=== PATIENT | female | born 1980 | race Caucasian/White ===

== ENCOUNTER → 2018-04-29 | Outpatient (CLI) | payer OTHER ==
--- NOTE | 2018-04-29 13:26 | US ---
EXAMINATION TYPE: US thyroid st tissue head/neck DATE OF EXAM: 04/29/2018 COMPARISON: NONE CLINICAL HISTORY: R22.1 SWELLING MASS LUMP; upper neck fullness per patient. GLAND SIZE: Right Lobe: 5.2 x 1.3 x 1.4 cm Overall Parenchyma: homogenous Left Lobe: 4.5 x 1.1 x 1.3 cm Overall Parenchyma: homogeneous Isthmus Thickness: 0.3 cm NODULES RIGHT: # of nodules measured on right: 1 1. 0.9 X 0.8 x 0.7 cm isoechoic mixed nodule at the lower pole with poorly defined (very isoechoic to thyroid tissue)margins. This nodule is wider than tall and shows no intranodular vascularity. LEFT: # of nodules measured on left: 0 ISTHMUS: # of nodules measured in the isthmus: 0 Bilateral neck scanned: lymph node seen superior to right thyroid = 1.8 x 1.3 x 0.6cm. IMPRESSION: Solitary subcentimeter right isoechoic thyroid nodule that does not meet size criteria for percutaneo us biopsy. Surveillance is recommended.
--- NOTE | 2018-04-29 13:43 | US ---
EXAMINATION TYPE: US pelvis complete transvag DATE OF EXAM: 04/29/2018 COMPARISON: NONE CLINICAL HISTORY: N92.6 IRREGULAR MENSES; mother in menopause age 40 per patient; pelvic pain after e xercise TECHNIQUE: Transvaginal (TV) and Transabdominal (TA) . Transabdominal sonographic images of the pel vis were acquired. Transvaginal sonographic images were medically necessary to better assess the fol lowing anatomy: endometrium Date of LMP: 04/16/2018 EXAM MEASUREMENTS: Uterus: 8.4 x 5.3 x 4.1cm Endometrial Stripe: 1.8cm on TV US Right Ovary: 2.8 x 2.4 x 2.2cm Left Ovary: 4.0 x 2.1 x 2.9cm 1. Uterus: Retroverted on TV US; multiple small hyperechoic foci in MARYJO at C section scar 2. Endometrium: abnormally thickened for day 14 LMP as is greater than 1.4cm normal range 3. Right Ovary: multiple small follicles 4. Left Ovary: multiple follicles are seen with largest as simple cyst = 2.3 x 1.4 x 2.3cm; color fl ow is seen in bilateral ovary 5. Bilateral Adnexa: wnl 6. Posterior cul-de-sac: small amount of free fluid seen IMPRESSION: 1. Abnormally thickened endometrium. This could represent endometrial hyperplasia, endometrial polyp or endometrial mass. Further evaluation with sonohysterogram or direct visualization could be perform ed. 2. Small amount of free fluid within the pelvis, likely physiologic in nature and could represent seq uela of a recently ruptured cyst.
== END | disposition home or self-care (01) ==
LOC: RADUSWWP 08:54
PROVIDERS: ATTEND Family Medicine
DX: E04.1 Nontoxic single thyroid nodule (principal); R93.89 Abnormal findings on diagnostic imaging of other specified body structures; N92.6 Irregular menstruation, unspecified
CPT/HCPCS: 76536; 76830; 76856

== ENCOUNTER → 2018-05-07 | Outpatient (CLI) | payer OTHER ==
--- NOTE | 2018-05-07 13:13 | MM ---
Reason for exam: clinical finding. Last mammogram was performed 14 years and 7 months ago. History: Family history of breast cancer in maternal aunt at age 40. Indicated problem(s): pain in both breasts. Physical Findings: Nurse Summary: 0.5 x 0.5cm/ 1 x 2cm nodule in the right breast upper outer quadrant and a 0.5 x 0.5cm nodule in the left breast upper outer quadrant (nurse ts). [facility] Mammo w CAD ADRIENNE Bilateral CC and MLO view(s) were taken. The breast tissue is heterogeneously dense. This may lower the sensitivity of mammography. There is no discrete abnormality including area of concern. No significant new findings when compared with previous films. These results were verbally communicated with the patient and result sheet given to the patient on 05/07/18. ASSESSMENT: Incomplete: need additional imaging evaluation, BI-RAD 0 RECOMMENDATION: Ultrasound of both breasts.
--- NOTE | 2018-05-07 13:14 | USB ---
Reason for exam: additional evaluation requested from abnormal screening. History: Family history of breast cancer in maternal aunt at age 40. US Breast Limited BILAT Right limited breast ultrasound including focal area of concern, retroareolar and axilla demonstrates a 0.5 x 0.6 x 0.3cm cystic lesion at the posterior nipple. Left limited breast ultrasound including focal area of concern, retroareolar and axilla demonstrates no cystic or solid lesion seen. These results were verbally communicated with the patient and result sheet given to the patient on 05/07/18. ASSESSMENT: Benign, BI-RAD 2 RECOMMENDATION: Routine screening mammogram of both breasts at age 41. Manage patient on a clinical basis.
== END | disposition home or self-care (01) ==
LOC: RADMAMWWP 07:54
PROVIDERS: ATTEND Family Medicine
DX: N64.4 Mastodynia (principal)
CPT/HCPCS: 77066

== ENCOUNTER → 2018-10-22 | Outpatient (CLI) | payer OTHER ==
--- NOTE | 2018-10-22 15:02 | US ---
EXAMINATION TYPE: US thyroid st tissue head/neck DATE OF EXAM: 10/22/2018 COMPARISON: 04/29/2018 CLINICAL HISTORY: E04.1 Thyroid Nodule. follow up right nodule, no thyroid meds GLAND SIZE: Right Lobe: 4.1 x 1.3 x 1.3 cm Overall Parenchyma: homogenous Left Lobe: 3.9 x 1.1 x 1.4 cm Overall Parenchyma: homogeneous Isthmus Thickness: 0.2 cm NODULES RIGHT: # of nodules measured on right: 1 1. 0.8 X 0.6 x 0.7 cm isoechoic nodule at the lower pole with poorly defined margins. This nodule is taller than wide and shows no intranodular vascularity. Prior size: 0.9 x 0.8 x 0.7 cm LEFT: # of nodules measured on left: 0 ISTHMUS: # of nodules measured in the isthmus: 0 Bilateral neck scanned, no evidence of lymphadenopathy. IMPRESSION: Solitary subcentimeter right thyroid nodule are similar to the prior exam of 04/29/2018. Continued ahn rveillance could be performed.
== END | disposition home or self-care (01) ==
LOC: RADUSWWP 09:37
PROVIDERS: ATTEND Family Medicine
DX: E04.1 Nontoxic single thyroid nodule (principal)
CPT/HCPCS: 76536

== ENCOUNTER → 2019-01-27 | Outpatient (CLI) | payer OTHER ==
--- NOTE | 2019-01-27 13:19 | CT ---
EXAMINATION TYPE: CT soft tissue neck w con DATE OF EXAM: 01/27/2019 12:59 PM COMPARISON: Thyroid ultrasound 10/22/2018 HISTORY: Enlarged lymph node CT DLP: 309.9 mGycm Automated exposure control for dose reduction was used. CONTRAST: CT scan of the neck is performed following with IV Contrast, patient injected with 100 mL of Isovue 3 00. Axial images are obtained, coronal and sagittal reformatted images are reviewed. FINDINGS: Parapharyngeal soft tissues show calcification on the left likely due to chronic infection. Airway: Level the true and false cords is normal. Tracheal bronchial tree is patent. Parotid/submandibular glands: No gross abnormality seen. Carotid/Vascular Structures: Patent, no evident dissection or aneurysm Osseous Structures: Within normal limits, mild degenerative disc changes present with loss of disc he ight C5-6 and C6-7, associated spondylosis. No significant spinal stenosis. Other: No evident adenopathy, nonenlarged nodes are present along the cervical chains. Skull base is normal. IMPRESSION: No significant abnormalities evident.
== END ==
LOC: RADCTMAIN 12:32
PROVIDERS: ATTEND Family Medicine
DX: R59.0 Localized enlarged lymph nodes (principal)
CPT/HCPCS: 70491; Q9967

== ENCOUNTER → 2019-04-01 | Outpatient (CLI) | payer OTHER ==
--- NOTE | 2019-04-01 13:03 | XR ---
EXAMINATION TYPE: XR shoulder complete BILAT DATE OF EXAM: 04/01/2019 COMPARISON: NONE HISTORY: Pain TECHNIQUE: Three views of each shoulder are submitted. FINDINGS: The osseous structures are intact. There is no acute fracture or dislocation. There is narrowing of the AC joint greater on the right. No erosive changes. IMPRESSION: 1. No acute process. If symptoms persist consider MRI.
== END | disposition home or self-care (01) ==
LOC: RADXRMAIN 12:26
PROVIDERS: ATTEND Family Medicine
DX: S49.91XA Unspecified injury of right shoulder and upper arm, initial encounter (principal); M25.512 Pain in left shoulder

== ENCOUNTER → 2019-08-20 | Outpatient (CLI) | payer OTHER ==
--- NOTE | 2019-08-20 15:33 | US ---
EXAMINATION TYPE: US pelvic complete DATE OF EXAM: 08/20/2019 COMPARISON: US 2018 CLINICAL HISTORY: 39-year-old female N93.9 abnormal bleeding, R10.2 pelvic pain. Intermittent pelvic pain and irregular cycles x couple months, 2, para 2, history of and tubal ligation . TECHNIQUE: Transabdominal sonographic images of the pelvis were acquired. Date of LMP: 08/05/2019 FINDINGS: EXAM MEASUREMENTS: Uterus: 7.9 x 4.2 x 5.2 cm Endometrial Stripe: 0.7 cm Right Ovary: 3.4 x 2.1 x 1.5 cm Left Ovary: 5.2 x 4.0 x 4.3 cm, enlarged secondary to underlying cystic lesion. 1. Uterus: anteverted, wnl 2. Endometrium: wnl 3. Right Ovary: wnl 4. Left Ovary: 4.0 x 3.4 x 2.8cm cyst 5. Bilateral Adnexa: wnl 6. Posterior cul-de-sac: small amount of free fluid IMPRESSION: 1. A 4.0 cm cyst, likely dominant follicle or functional cyst within the left ovary. A 6-8 week follo w-up can ensure involution. 2. Small amount of cul-de-sac free fluid likely physiologic.
== END | disposition home or self-care (01) ==
LOC: RADUSWWP 11:53
PROVIDERS: ATTEND Family Medicine
DX: N83.202 Unspecified ovarian cyst, left side (principal)
CPT/HCPCS: 76856

== ENCOUNTER → 2022-12-13 | Outpatient (CLI) | payer OTHER ==
[2022-12-13 21:32] LABS: Basophils # (A) 0.07 X 10*3/uL (0.00-0.10); Basophils % (A) 1.1 %; Eosinophils # (A) 0.12 X 10*3/uL (0.04-0.35); Eosinophils % (A) 1.9 %; HCT 38.2 % (37.2-46.3); HGB 12.4 d/dL (12.0-15.0); Lymphocytes # (A) 1.63 X 10*3/uL (0.90-5.00); Lymphocytes % (A) 25.5 %; MCH 29.5 pg (27.0-32.0); MCHC 32.5 d/dL (32.0-37.0); Mean Platelet Volume 11.9 FL (9.5-12.2); Monocytes % (A) 7.8 %; NRBC Per 100 WBC 0 X 10*3/uL (0.00-0.01); Neutrophils # (A) 4.07 X 10*3/uL (1.80-7.70); Neutrophils % (A) 63.5 %; Platelet Count 222 X 10*3/uL (140-440); RDW 11.9 % (11.5-14.5)
[2022-12-13 22:06] LABS: ALT 10 U/L (8-44); AST 15 U/L (13-35); Albumin 4.6 d/dL (3.8-4.9); Albumin/Globulin Ratio 1.84 Ratio (1.60-3.17); Alkaline Phosphatase 46 U/L (41-126); BUN/Creat Ratio 12.62 Ratio (12.00-20.00); Blood Urea Nitrogen 10.1 mg/dL (9.0-27.0); C Reactive Protein <0.30 mg/dL (0.00-0.80); Calcium 9.8 mg/dL (8.7-10.3); Carbon Dioxide 24.5 mmol/L (21.6-31.8); Chloride 104 mmol/L (96-109); Globulin 2.5 d/dL (1.6-3.3); Glucose 81 mg/dL (70-110); Potassium 4.2 mmol/L (3.5-5.5); Sodium 143 mmol/L (135-145); Total Bilirubin 0.3 mg/dL (0.3-1.2); Total Protein 7.1 d/dL (6.2-8.2)
[2022-12-13 22:29] LABS: Erythrocyte Sedimentation Rate 6 mm/Hr (0-20)
[2022-12-14 00:01] LABS: Gliadin AB IgA, Deaminated Negative (Negative); Gliadin AB IgA, Unit <0.5 U/mL; Gliadin AB IgG, Deaminated Negative (Negative); Gliadin AB IgG, Unit <0.4 U/mL
== END | disposition home or self-care (01) ==
LOC: LABWHC1 15:08
PROVIDERS: ATTEND Nurse Practitioner Family
DX: K52.9 Noninfective gastroenteritis and colitis, unspecified (principal)
CPT/HCPCS: 36415; 80053; 83516; 85025; 85652; 86140

== ENCOUNTER 2022-12-19 07:31 | Day surgery (SDC) | payer OTHER ==
[2022-12-18 11:30] VITALS: BMI 25.1
[~2022-12-19 07:31] MED LIST: LACTATED RINGERS 1,000 ML IV SCH
[2022-12-19 08:11] VITALS: TEMP 97.9
[2022-12-19] MEDS ORDERED: PROPOFOL 10 MG/ML 20 ML VIAL IV ONE (08:28)
[2022-12-19] MEDS ORDERED: LIDOCAINE 2% INJ 20 MG/ML (2 ML VIAL) ONE (08:28)
--- NOTE | 2022-12-19 08:56 | P.PCN ---
Date of Procedure: 12/19/22 Procedure(s) Performed: Brief history: Patient is a pleasant 42-year-old white female scheduled for an elective upper endoscopy as well as colonoscopy as a part of evaluation of epigastric pain and chronic diarrhea for the last 6 months duration. She does have family history of celiac disease. Procedure performed: Esophagogastroduodenoscopy with biopsy Colonoscopy with biopsy Preoperative diagnosis: Abdominal pain and chronic diarrhea of 6 months duration Anesthesia: MAC Procedure: After informed consent was obtained from the patient was brought into the endoscopy unit and IV sedation was administered by anesthesia under continuous monitoring. Initially upper endoscopy was done. The Olympus GF 160 video endoscope was inserted inserted into the mouth and esophagus intubated without any difficulty and was gradually advanced into the stomach and duodenum and carefully examined. The bulb and second part of the duodenum appeared biopsies were done from the duodenum to rule out celiac disease. normal. The scope was then withdrawn into the stomach adequately insufflated with air and upon careful examination the antrum had mild gastritis and biopsies were done from this area. Mucosa of the body, cardia and fundus appeared normal. The scope was then withdrawn into the esophagus. The GE junction was located at 40 cm to the incisors. It appeared regular with no erythema erosions or ulcerations. Rest of the esophagus appeared normal. Patient tolerated the procedure well. At this time the patient continued to remain sedation. Initial digital rectal examination was normal. Olympus CF 160 video colonoscope was then inserted into the rectum and gradually advanced to the cecum without any difficulty. Careful examination was performed as the scope was gradually being withdrawn. The prep was excellent terminal ileum was intubated and 20 cm visualized and appeared normal.. The cecum, ascending colon, transverse colon, descending colon, sigmoid colon and rectum appeared normal. Random biopsies were done from ascending and descending colon to rule out metastatic/collagenous colitis. Retroflexion was performed in the rectum and no lesions were noted. Patient tolerated the procedure well. Impression: 1. Upper endoscopy revealed mild antral gastritis 2. Colonoscopy was within normal limits with no evidence of colitis or colorectal neoplasia Recommendations: Findings of this examination were discussed with the patient as well as her family. She was advised to follow with the biopsy results. She'll be seen in office in 1 week
[2022-12-19 09:00] VITALS: RESP 18
[2022-12-19 09:35] VITALS: BP 115/78; PULSE 69
== END 2022-12-19 09:59 | disposition home or self-care (01) ==
LOC: ORWHC2ENDO 07:31
PROVIDERS: ATTEND Internal Medicine Gastroenterology
DX: K52.9 Noninfective gastroenteritis and colitis, unspecified (principal); Z83.79 Family history of other diseases of the digestive system; K29.50 Unspecified chronic gastritis without bleeding; K31.89 Other diseases of stomach and duodenum; Z91.040 Latex allergy status; Z91.013 Allergy to seafood; Z91.09 Other allergy status, other than to drugs and biological substances; J45.909 Unspecified asthma, uncomplicated; L40.9 Psoriasis, unspecified; Z79.51 Long term (current) use of inhaled steroids; Z79.899 Other long term (current) drug therapy
CPT/HCPCS: 81025; 88305; 45380; 43239; J2704; J2001

== ENCOUNTER → 2023-12-24 | Outpatient (CLI) | payer BC, OTHER ==
[2023-12-24 15:21] LABS: ALT 11 U/L (8-44); AST 19 U/L (13-35); Basophils # (A) 0.07 X 10*3/uL (0.00-0.10); Basophils % (A) 1.4 %; Eosinophils # (A) 0.05 X 10*3/uL (0.04-0.35); HCT 36.2 % (37.2-46.3); HGB 11.6 g/dL (12.0-15.0); Lymphocytes # (A) 1.29 X 10*3/uL (0.90-5.00); MCH 28.4 pg (27.0-32.0); MCV 88.7 FL (80.0-97.0); Mean Platelet Volume 11.4 FL (9.5-12.2); Monocytes # (A) 0.39 X 10*3/uL (0.20-1.00); Monocytes % (A) 7.6 %; NRBC Per 100 WBC 0 X 10*3/uL (0.00-0.01); Neutrophils # (A) 3.35 X 10*3/uL (1.80-7.70); Neutrophils % (A) 64.8 %; Platelet Count 217 X 10*3/uL (140-440); RBC 4.08 X 10*6/uL (4.10-5.20); RDW 13.2 % (11.5-14.5); WBC 5.16 X 10*3/uL (4.50-10.00)
[2023-12-24 15:55] LABS: Hepatitis B Surface AB- Quant 3.5 mIU/mL
[2023-12-24 16:00] LABS: Hepatitis B Surface Antigen Nonreactive (Nonreactive); Hepatitis C IgG Antibody Nonreactive (Nonreactive)
== END | disposition home or self-care (01) ==
LOC: LABWHC1 11:31
PROVIDERS: ATTEND Dermatology MOHS-Micrographic Surgery
DX: L40.0 Psoriasis vulgaris (principal); B07.8 Other viral warts; L40.59 Other psoriatic arthropathy; R23.8 Other skin changes; Z79.899 Other long term (current) drug therapy
CPT/HCPCS: 36415; 82565; 84450; 84460; 85025; 86480; 86704; 86706; 86803; 87340